=== PATIENT | male | born 1990 | race Caucasian/White ===

== ENCOUNTER 2017-06-26 19:15 | Emergency (ER) | payer OTHER ==
[~2017-06-26] VITALS: Ht 175.2 cm; Wt 93.4 kg
[~2017-06-26 19:15] MED LIST: AMOXICILLIN500 M2 PO; ANAPROX DS550 MG PO; CLINDAMYCIN HC300 MG PO; COMPLETE ALLERG25 M2 PO; CYCLOBENZAPRINE5 M3 PO; FLEXERIL10 MG PO; HYDROCODONE BIT1 T11 PO; KEFLEX500 MG PO; MOBIC15 MG PO; MOTRIN800 MG PO; Motrin,Rufen800 MG PO; NAPROSYN500 MG PO; NORCO 325 MG-51 TAB PO; Orphenadrine C100 MG PO; PENICILLIN VK500 MG PO; Peridex 473 ML473 ML PO; RISPERDAL1 M1 PO; ULTRAM50 MG PO; VISTARIL25 M2 PO; ZYPREXA10 M1 PO
== END 2017-06-26 20:05 | disposition home or self-care (01) ==
LOC: ED 19:15
DX: S80.212A Abrasion, left knee, initial encounter (principal); F17.200 Nicotine dependence, unspecified, uncomplicated; V19.9XXA Pedal cyclist (driver) (passenger) injured in unspecified traffic accident, initial encounter; Y93.55 Activity, bike riding; Y92.89 Other specified places as the place of occurrence of the external cause; Y99.8 Other external cause status

== ENCOUNTER 2018-02-23 17:07 | Emergency (ER) | payer OTHER ==
[~2018-02-23] VITALS: Ht 175.2 cm; Wt 93.4 kg
[2018-02-23] MEDS ORDERED: LAMOTRIGINE100 MG PO (17:18)
[2018-02-23] MEDS ORDERED: MINIPRESS2 M1 PO (17:18)
[2018-02-23] MEDS ORDERED: 'CLONIDINE0.1 MG PO (17:18)
[2018-02-23] MEDS ORDERED: NEURONTIN300 MG PO (17:18)
[2018-02-23] MEDS ORDERED: MELOXICAM7.5 MG PO (17:19)
[2018-02-23] MEDS ORDERED: PREDNISONE10 MG PO (17:27)
== END 2018-02-23 17:32 | disposition home or self-care (01) ==
LOC: ED 17:07
DX: L23.9 Allergic contact dermatitis, unspecified cause (principal); F17.200 Nicotine dependence, unspecified, uncomplicated; Z79.899 Other long term (current) drug therapy

== ENCOUNTER → 2018-04-26 | Outpatient (CLI) | payer OTHER ==
[~2018-04-26] MED LIST changes: +'CLONIDINE0.1 MG PO; +LAMOTRIGINE100 MG PO; +MELOXICAM7.5 MG PO; +MINIPRESS2 M1 PO; +NEURONTIN300 MG PO; +PREDNISONE10 MG PO
== END | disposition home or self-care (01) ==
LOC: ORTHO 01:59
DX: M25.511 Pain in right shoulder (principal)

== ENCOUNTER 2018-09-30 01:19 | Emergency (ER) | payer OTHER ==
[~2018-09-30] VITALS: Ht 175.2 cm; Wt 113.4 kg
[2018-09-30] MEDS ORDERED: CLINDAMYCIN150 MG PO (02:01)
== END 2018-09-30 01:47 | disposition home or self-care (01) ==
LOC: ED 01:19
DX: K04.7 Periapical abscess without sinus (principal); J45.909 Unspecified asthma, uncomplicated; Z79.899 Other long term (current) drug therapy; Z90.49 Acquired absence of other specified parts of digestive tract

== ENCOUNTER 2018-10-03 15:54 | Inpatient (IN) | payer OTHER ==
[~2018-10-03] VITALS: Ht 175.3 cm; Wt 104.5 kg
--- NOTE | ~2018-10-03 | CON ---
[place], [place] REPORT OF CONSULTATION NAME: BEN CHRISTENSEN UNIT #: [id number] ROOM: 416 DOCTOR: JOANN FRANCO DMD BIRTHDATE: [birth year] DOS: Consultation for a left-sided facial swelling. On exam, moderate left-sided facial swelling noted. Minimal left eye swelling. The patient denies any dysphagia or dyspnea. Intraoral exam reveals minimal intraoral opening due to swelling and pain, moderate fluctuant swelling in the buccal space, adjacent to tooth #14, which is extensively carious. Remainder of the dentition is in relatively poor condition. Discussed treatment options with the patient. Recommend extraction of tooth #14, incision and drainage and attempted closure of the sinus under general anesthesia. The patient agreed, surgery will be scheduled for tomorrow in the morning. JOANN FRANCO DMD CM:CONSTR:REPORT OF CONSULTATION 1314 10/06/[id number] interface
--- NOTE | ~2018-10-03 | O ---
[place], [place] OPERATIVE NOTE NAME: BEN CHRISTENSEN UNIT #: [id number] ROOM: 416 DOCTOR: JOANN FRANCO DMD BIRTHDATE: [birth year] DOS: PREOPERATIVE DIAGNOSES: Left-sided facial swelling and nonrestorable tooth #14. POSTOPERATIVE DIAGNOSES: Left-sided facial swelling and nonrestorable tooth #14. ANESTHESIA: General anesthesia with endotracheal intubation. FLUIDS: Minimal. ESTIMATED BLOOD LOSS: Minimal. COMPLICATIONS: None. CONDITION: To PACU, stable. DESCRIPTION OF PROCEDURE: The patient was brought to the OR and placed in supine position. IV and EKG lines were placed. Endotracheal intubation and general anesthesia was administered. The patient was prepped and draped for oral procedures. Risks and benefits were explained to the patient prior to surgery. Clinical exam and CT taken determined nonrestorable tooth #14 with abscess eroding into the sinus. PROCEDURES PERFORMED: 8 mL of 0.5% Sensorcaine with 1:200,000 epinephrine. Stab incision in the buccal space. Moderate drainage achieved. Complete extraction tooth #14. Gelfoam placed. Sutured with 4-0 Vicryl. Lavaged x 2. Throat pack removed. The patient left the OR in good condition and went to PACU. JOANN FRANCO DMD CM:OPRECORD:OPERATIVE NOTE 1311 20 JOANN FRANOC DMD 10/06/18 191 interface
[~2018-10-03 15:54] MED LIST changes: +CLINDAMYCIN150 MG PO
[2018-10-03 15:55] VITALS: BP 139/96
[2018-10-03 16:42] LABS: BASO # 0.1 10*3/uL (0.0-0.1); BASO % 0.5 % (0.0-1.0); EOS # 0.3 10*3/uL (0.0-0.4); EOS % 3.5 % (1.0-4.0); HEMATOCRIT 41.7 % (42.0-52.0); HEMOGLOBIN 14.1 g/dl (14.0-18.0); LYMPH % 21.5 % (27.0-41.0); MEAN CELL VOLUME 92.7 fl (80.0-94.0); MEAN CORPUSCULAR HGB 31.3 pg (27.0-31.0); MEAN CORPUSCULAR HGB CONC 33.8 g/dl (33.0-37.0); MEAN PLATELET VOLUME 9.6 fl (9.6-12.3); MONO % 10.1 % (3.0-9.0); NEUT # 6.1 10*3/uL (2.3-7.9); NEUT % 64.1 % (47.0-73.0); PLATELET COUNT AUTOMATED 311 10*3/uL (130-400); RED CELL DISTRI WIDTH 12.4 % (0-14.5); WHITE BLOOD COUNT 9.5 10*3/uL (4.8-10.8)
--- NOTE | 2018-10-03 16:47 | NUR ---
PT STATES PAIN IS ALOT BETTER AFTER MEDICATION.
[2018-10-03 17:03] LABS: ALBUMIN 3.7 gm/dl (3.1-4.5); BUN 14 mg/dl (7-24); CHLORIDE 106 mmol/L (98-107); CREATININE 0.98 mg/dL (0.70-1.30); POTASSIUM 3.7 mmol/L (3.5-5.1); SGOT/AST 18 IU/L (3-35); SGPT/ALT 33 U/L (12-78); SODIUM 142 mmol/L (136-145); TOTAL PROTEIN 7.7 gm/dL (6.4-8.2)
[2018-10-03 17:10] LABS: ALKALINE PHOSPHATASE 74 U/L (45-117)
--- NOTE | 2018-10-03 18:06 | NUR ---
CT HERE TO PICK PATIENT UP FOR HIS CT SCAN.
--- NOTE | 2018-10-03 19:58 | NUR ---
CALL PLACED TO [facility] TO SEE WHEN CT WILL BE READ. STATED THEY WOULD READ IT NEXT.
[2018-10-03 20:00] VITALS: BP 138/80
--- NOTE | 2018-10-03 21:09 | NUR ---
PT ASKED ABOUT GOING OUTSIDE TO SMOKE ADVISED HIM WE ARE SMOKE FREE AND THAT HE HAD AN IV SP HE COULDNT GO OUTSIDE. PT STATES HE IS ALLERGIC TO NICOTINE PATCHES. PT STATES UNDERSTANDING AT THIS TIME.
--- NOTE | 2018-10-03 21:10 | NUR ---
PT STATES PAIN MEDICATION HAS BEEN EFFECTIVE AT THIS TIME. REMAINS IN BED WITH NO FURTHER COMPLAINTS AT THIS TIME. CALL LIGHT WITHIN REACH.
[2018-10-03 21:20] VITALS: BP 132/82
[2018-10-03 21:50] VITALS: BP 140/84
--- NOTE | 2018-10-03 21:50 | NUR ---
A 28, admitted to 4E, under the services of ERICKA Hall DO with a diagnosis of ABSCESS OF MAXILLA, PAIN, DENTAL ABSCESS. Chief complaint is TOOTHACHE. Patient arrived via wheel chair from ER. Monitor applied. Initial assessment completed. Vital signs taken and recorded. ERICKA HALL DO notified of admission to the unit. Orders received. See assessment for past medical history, medications and allergies. Patient and/or family oriented to unit. visitation policy reviewed. Clothing/patient valuable form completed. NI BARNHART A
--- NOTE | 2018-10-03 22:30 | NUR ---
UNABLE TO UPDATE MED. REC AT THIS TIME, WILL PASS ONTO DAYSHIFT NURSE.
--- NOTE | 2018-10-03 23:04 | NUR ---
PRN NORCO GIVEN FOR FACIAL PAIN. PATIENT TOLERATED WELL, CALL LIGHT IS WITHIN REACH.
--- NOTE | 2018-10-03 23:35 | NUR ---
0000 IV ABX GIVEN VIA PIGGYBACK. CALL LIGHT IS WITHIN REACH.
[2018-10-04] VITALS (7 sets, daily range): BP systolic 141–162; BP diastolic 80–98
--- NOTE | 2018-10-04 00:30 | NUR ---
PRN NORCO EFFECTIVE, CALL LIGHT IS WITHIN REACH.
--- NOTE | 2018-10-04 04:43 | NUR ---
0400 IV ABX GIVEN VIA PIGGYBACK. CALL LIGHT IS WITHIN REACH.
--- NOTE | 2018-10-04 05:40 | NUR ---
PRN MORPHINE GIVEN AT THIS TIME FOR FACIAL PAIN. PATIENT TOLERATED WELL, CALL LIGHT IS WITHIN REACH.
[2018-10-04 06:28] LABS: BASO % 0.3 % (0.0-1.0); EOS # 0.3 10*3/uL (0.0-0.4); EOS % 2.5 % (1.0-4.0); HEMATOCRIT 39.8 % (42.0-52.0); HEMOGLOBIN 13.4 g/dl (14.0-18.0); LYMPH % 18.3 % (27.0-41.0); MEAN CORPUSCULAR HGB 31.3 pg (27.0-31.0); MEAN CORPUSCULAR HGB CONC 33.7 g/dl (33.0-37.0); MEAN PLATELET VOLUME 9.6 fl (9.6-12.3); MONO # 1.1 10*3/uL (0.1-1.0); MONO % 9.5 % (3.0-9.0); NEUT # 7.7 10*3/uL (2.3-7.9); NEUT % 69.1 % (47.0-73.0); PLATELET COUNT AUTOMATED 306 10*3/uL (130-400); RED BLOOD COUNT 4.28 10*6/uL (4.50-5.90); RED CELL DISTRI WIDTH 12.3 % (0-14.5); WHITE BLOOD COUNT 11.1 10*3/uL (4.8-10.8)
[2018-10-04 07:01] LABS: ALBUMIN 3.3 gm/dl (3.1-4.5); ALKALINE PHOSPHATASE 69 U/L (45-117); BUN 15 mg/dl (7-24); CHLORIDE 103 mmol/L (98-107); CHOLESTEROL 109 mg/dL (<200); CREATININE 0.92 mg/dL (0.70-1.30); FREE T4 0.92 ng/dl (0.76-1.46); HDL CHOLESTEROL 25 mg/dl (40-60); LDL CHOLESTEROL 61 mg/dL (9-159); PHOSPHOROUS 3.1 mg/dL (2.5-4.9); POTASSIUM 3.9 mmol/L (3.5-5.1); SGOT/AST 14 IU/L (3-35); SGPT/ALT 31 U/L (12-78); SODIUM 137 mmol/L (136-145); TOTAL PROTEIN 7.4 gm/dL (6.4-8.2); TRIGLYCERIDES 116 mg/dl (<150); VLDL CHOLESTEROL 23 mg/dL (6-40)
--- NOTE | 2018-10-04 07:07 | NUR ---
SPOKE WITH DR. FRANCO REGARDING CONSULT. NO NEW ORDERS, WILL BE IN TO SEE PATIENT.
[2018-10-04 07:53] LABS: VITAMIN D, 25-HYDROXY 24.3 ng/mL (30-100)
--- NOTE | 2018-10-04 08:34 | NUR ---
24 HR chart check completed.
--- NOTE | 2018-10-04 08:55 | NUR ---
DR FRANCO IN FOR CONSULT AND HAS SCHELDULED OR IN AM.
--- NOTE | 2018-10-04 09:00 | NUR ---
Small Battery Plate Assembler in to talk to patient. Patient states lives at home with and daughter. There are few steps in the home. Physician: zulay hirsch [facility]acy: [facility] Home health services: none Patient's level of ADLs: INDEPENDENT Patient has working utilities: all working DME: none Follow-up physician's appointment after d/c: will be made by hospitalist nurse director upon discharge Does patient want to access PORTAL?: no Discharge plan discussed with patient, patient lives at home with and daughter, he is independent in adls and ambualtion, patient states he will be going home when able and denies any home needs. KIRSTIE GABRIEL
--- NOTE | 2018-10-04 15:25 | NUR ---
CALLED DR. MCKEON AND ASKED IF PATIENT COULD REMOVE MONITOR TO SHOWER. DR. MCKEON ALLOWS.
--- NOTE | 2018-10-04 17:36 | NUR ---
PATIENT C/O JAW PAIN. MEDICATED WITH PRN NORCO. WILL CHECK EFFECTIVENESS.
--- NOTE | 2018-10-04 20:10 | NUR ---
PT MEDICATED WITH IV MORPHINE PER PRN ORDER FOR C/O PAIN IN L SIDE OF JAW 07/19. WILL MONITOR EFFECTIVENESS. PATIENT EDUCATED ABOUT MEDICATION AND ENCOURAGED TO USE CALL LIGHT WHEN GETTING OOB. FAMILY AT BEDSIDE. CALL LIGHT LEFT IN REACH.
--- NOTE | 2018-10-04 21:49 | NUR ---
PATIENT STATES EARLIER IV MORPHINE WAS EFFECTIVE AND IS NOW RATING PAIN 5/10. PATIENT REQUESTING ADDITIONAL PAIN MEDICATION AT THIS TIME STATING "IT'S STILL HURTING." PO NORCO ADMINISTERED PER PRN ORDER. PATIENT IS ALSO C/O SOME MILD NAUSEA BUT IS REFUSING NEED FOR PRN ZOFRAN. WILL MONITOR. CALL LIGHT IN REACH.
--- NOTE | 2018-10-04 23:57 | NUR ---
PATIENT MEDICATED WITH PO RESTORIL PER PRN ORDER FOR C/O INSOMNIA. WILL MONITOR EFFECTIVENESS. CALL LIGHT LEFT IN REACH.
[2018-10-05] VITALS (8 sets, daily range): BP systolic 119–164; BP diastolic 80–98
--- NOTE | 2018-10-05 00:01 | NUR ---
NOTIFIED OF BP 160/92 MANUALLY AFTER PAIN HAS BEEN MANAGED. REVIEWED HOME MEDICATIONS WITH PATIENT AND DISCUSSED THESE WITH . STATES HE WILL REVIEW MEDICATIONS AND PUT IN ORDERS NEEDED. ALSO DISCUSSED NPO STATUS FOR SURGERY ON MAXILLARY ABSCESS WITH .
--- NOTE | 2018-10-05 00:46 | NUR ---
IV HYDRALAZINE ADMINISTERED PER ONE TIME ORDER FOR HYPERTENSION. BP 160/92 MANUALLY. WILL MONITOR EFFECTIVENESS. CALL LIGHT LEFT IN REACH.
--- NOTE | 2018-10-05 01:30 | NUR ---
HOME MED REC HAS BEEN REVIEWED WITH PATIENT BY THIS RN. REQUESTING THAT AM SHIFT RN CALL [facility] TO VERIFY HOME MEDICATIONS.
--- NOTE | 2018-10-05 05:11 | NUR ---
PATIENT TAKEN OFF LANGUAGE TRANSLATOR AT THIS TIME SO THAT HE CAN SHOWER BEFORE SURGERY. STEADY GAIT OBSERVED. PATIENT DENIES ANY DIZZINESS/LIGHTHEADEDNESS. TAKEN TO SHOWER ROOM. TOWELS/HIBICLENS/NEW [place] PROVIDED. INSTRUCTED TO USE CALL LIGHT IN SHOWER IF NEED BE. ALSO INSTRUCTED TO USE ROOM CALL LIGHT TO NOTIFY RN WHEN HE IS FINISHED SO THAT HE CAN BE PLACED BACK ON THE MONITOR.
[2018-10-05 08:18] LABS: MEAN CELL VOLUME 94.1 fl (80.0-94.0); MEAN CORPUSCULAR HGB 30.9 pg (27.0-31.0); MEAN CORPUSCULAR HGB CONC 32.8 g/dl (33.0-37.0); MEAN PLATELET VOLUME 9.3 fl (9.6-12.3); PLATELET COUNT AUTOMATED 361 10*3/uL (130-400); RED BLOOD COUNT 4.89 10*6/uL (4.50-5.90); RED CELL DISTRI WIDTH 12.3 % (0-14.5)
[2018-10-05 08:23] LABS: HEMOGLOBIN 15.1 g/dl (14.0-18.0)
[2018-10-05 08:24] LABS: BUN 14 mg/dl (7-24); CHLORIDE 102 mmol/L (98-107); CREATININE 1.03 mg/dL (0.70-1.30); POTASSIUM 4.5 mmol/L (3.5-5.1); SODIUM 136 mmol/L (136-145)
[2018-10-05 08:33] LABS: TOTAL CELLS COUNTED 100 #CELLS
[2018-10-05 08:34] LABS: PLATELET SUFFICIENCY NORMAL (NORMAL)
--- NOTE | 2018-10-05 09:00 | NUR ---
case management attempted to visit with patient, patient in surgery at this time, will see at a later time
--- NOTE | 2018-10-05 11:27 | NUR ---
PT LEFT AMA
--- NOTE | 2018-10-06 11:00 | NUR ---
WAS TOLD BY PATIENT BRANCH BANKER THAT PT WAS LEAVING AMA. PT HAD ASKED ALL MORNING IF WAS BEING DISCHARGED, I HAD TOLD PT THAT THERE WAS NOT NO ORDER FOR DISCHARGE. PT REMOVED HIS IV SITE AND SIGNED AMA PAPERWORK.
== END 2018-10-05 11:27 | disposition left against medical advice (07) | DRG 159 ==
LOC: ED 15:54 → 4E 20:51 → EDHOLD 20:51 → 4E 20:51
PROVIDERS: Internal Medicine; Nurse Practitioner Family; Student in an Organized Health Care Education/Training Program; ADMIT Internal Medicine
PROC: 0CDWXZ0 Extraction of Upper Tooth, Single, External Approach (ICD-10-PCS; principal; 2018-10-05)
PROC: 0C9W0Z0 Drainage of Upper Tooth, Open Approach, Single (ICD-10-PCS; 2018-10-05)
DX: K04.7 Periapical abscess without sinus (principal); M27.2 Inflammatory conditions of jaws; K02.9 Dental caries, unspecified; I10 Essential (primary) hypertension; Z53.21 Procedure and treatment not carried out due to patient leaving prior to being seen by health care provider; J45.909 Unspecified asthma, uncomplicated; E66.09 Other obesity due to excess calories; R56.9 Unspecified convulsions; Z71.6 Tobacco abuse counseling; Z72.0 Tobacco use; Z68.34 Body mass index [BMI] 34.0-34.9, adult; Z90.49 Acquired absence of other specified parts of digestive tract; Z83.3 Family history of diabetes mellitus; Z82.0 Family history of epilepsy and other diseases of the nervous system; Z82.49 Family history of ischemic heart disease and other diseases of the circulatory system; Z79.899 Other long term (current) drug therapy

== ENCOUNTER 2018-10-20 04:18 | Emergency (ER) | payer OTHER ==
[~2018-10-20] VITALS: Ht 175.2 cm; Wt 117.9 kg
[2018-10-20 04:49] LABS: BASO # 0.1 10*3/uL (0.0-0.1); BASO % 0.5 % (0.0-1.0); EOS # 0.4 10*3/uL (0.0-0.4); EOS % 3.9 % (1.0-4.0); HEMATOCRIT 41.9 % (42.0-52.0); HEMOGLOBIN 14.2 g/dl (14.0-18.0); LYMPH # 3.6 10*3/uL (1.3-4.4); LYMPH % 35.5 % (27.0-41.0); MEAN CELL VOLUME 91.9 fl (80.0-94.0); MEAN CORPUSCULAR HGB 31.1 pg (27.0-31.0); MEAN CORPUSCULAR HGB CONC 33.9 g/dl (33.0-37.0); MEAN PLATELET VOLUME 9.6 fl (9.6-12.3); MONO % 9.9 % (3.0-9.0); NEUT # 5.1 10*3/uL (2.3-7.9); PLATELET COUNT AUTOMATED 352 10*3/uL (130-400); RED BLOOD COUNT 4.56 10*6/uL (4.50-5.90); RED CELL DISTRI WIDTH 12.5 % (0-14.5); WHITE BLOOD COUNT 10.2 10*3/uL (4.8-10.8)
[2018-10-20 05:00] LABS: BILIRUBIN NEGATIVE (NEGATIVE); BLOOD NEGATIVE (NEGATIVE); CLARITY CLEAR (CLEAR); COLOR YELLOW (YELLOW); GLUCOSE NEGATIVE (NEGATIVE); KETONE NEGATIVE (NEGATIVE); LEUKO ESTERASE NEGATIVE (NEGATIVE); NITRITE NEGATIVE (NEGATIVE); SPECIFIC GRAVITY >= 1.030 (1.005-1.030); UROBILINOGEN 0.2 E.U./dl (0.2-1.0)
[2018-10-20 05:04] LABS: ALBUMIN 3.8 gm/dl (3.1-4.5); ALKALINE PHOSPHATASE 79 U/L (45-117); BUN 19 mg/dl (7-24); CHLORIDE 108 mmol/L (98-107); CREATININE 1.01 mg/dL (0.70-1.30); POTASSIUM 3.7 mmol/L (3.5-5.1); SGOT/AST 14 IU/L (3-35); SGPT/ALT 31 U/L (12-78); SODIUM 141 mmol/L (136-145); TOTAL PROTEIN 7.2 gm/dL (6.4-8.2)
[2018-10-20 05:24] LABS: RBC 0-2 rbc/hpf (0-2); WBC 0-2 wbc/hpf (0-5)
[2018-10-20] MEDS ORDERED: ONDANSETRON HYDR4 M1 PO (06:10)
== END 2018-10-20 06:18 | disposition home or self-care (01) ==
LOC: ED 04:18
PROVIDERS: Emergency Medicine
DX: K52.9 Noninfective gastroenteritis and colitis, unspecified (principal); R06.02 Shortness of breath; R07.81 Pleurodynia; R05 Cough; I10 Essential (primary) hypertension; E66.9 Obesity, unspecified; F17.200 Nicotine dependence, unspecified, uncomplicated; Z79.899 Other long term (current) drug therapy

== ENCOUNTER 2019-10-23 17:05 | Emergency (ER) | payer OTHER ==
[~2019-10-23] VITALS: Ht 175.2 cm; Wt 102.1 kg
[~2019-10-23 17:05] MED LIST changes: +Bactroban Oint22 GM T; +CEPHALEXIN500 M1 PO; +IBU800 MG PO; +NICODERM CQ1 EAC2 TD; +ONDANSETRON HYDR4 M1 PO; +SEPTDS PO
[2019-10-23] MEDS ORDERED: NAPROSYN500 MG PO (17:45)
[2019-10-23] MEDS ORDERED: AMOXICILLIN500 M2 PO (17:45)
== END 2019-10-23 17:58 | disposition home or self-care (01) ==
LOC: ED 17:05
DX: K08.89 Other specified disorders of teeth and supporting structures (principal); F17.200 Nicotine dependence, unspecified, uncomplicated; Z79.899 Other long term (current) drug therapy

== ENCOUNTER 2021-05-13 16:21 | Emergency (ER) | payer OTHER ==
[~2021-05-13] VITALS: Wt 108.9 kg
[2021-05-13] MEDS ORDERED: MEDROL DOSEPAK4 MG PO (19:02)
== END 2021-05-13 19:12 | disposition home or self-care (01) ==
LOC: ED 16:21
DX: T63.441A Toxic effect of venom of bees, accidental (unintentional), initial encounter (principal); Z90.49 Acquired absence of other specified parts of digestive tract; Z79.899 Other long term (current) drug therapy; Y92.89 Other specified places as the place of occurrence of the external cause

== ENCOUNTER 2021-05-28 01:28 | Emergency (ER) | payer OTHER ==
[~2021-05-28] VITALS: Ht 175.2 cm; Wt 112.0 kg
[~2021-05-28 01:28] MED LIST changes: +MEDROL DOSEPAK4 MG PO
[2021-05-28] MEDS ORDERED: PENICILLIN VK500 MG PO (01:53)
== END 2021-05-28 01:57 | disposition home or self-care (01) ==
LOC: ED 01:28
DX: K04.7 Periapical abscess without sinus (principal); K02.9 Dental caries, unspecified; Z79.899 Other long term (current) drug therapy

== ENCOUNTER 2021-11-26 11:36 | Emergency (ER) | payer OTHER ==
[~2021-11-26] VITALS: Wt 99.8 kg
[2021-11-26] MEDS ORDERED: PENICILLIN VK500 MG PO (12:13)
[2021-11-26] MEDS ORDERED: IBUPROFEN600 MG PO (12:13)
== END 2021-11-26 12:17 | disposition home or self-care (01) ==
LOC: ED 11:36
DX: K02.9 Dental caries, unspecified (principal); Z79.899 Other long term (current) drug therapy; Z98.890 Other specified postprocedural states; Z90.49 Acquired absence of other specified parts of digestive tract; Z87.891 Personal history of nicotine dependence

== ENCOUNTER 2021-12-01 09:40 | Emergency (ER) | payer OTHER ==
[~2021-12-01] VITALS: Ht 175.2 cm; Wt 108.9 kg
[~2021-12-01 09:40] MED LIST changes: +IBUPROFEN600 MG PO
== END 2021-12-01 13:09 | disposition home or self-care (01) ==
LOC: ED 09:40
DX: J06.9 Acute upper respiratory infection, unspecified (principal); Z20.822 Contact with and (suspected) exposure to COVID-19; Z79.899 Other long term (current) drug therapy; Z90.49 Acquired absence of other specified parts of digestive tract; Z87.891 Personal history of nicotine dependence; Z98.890 Other specified postprocedural states

== ENCOUNTER → 2022-05-27 | Outpatient (CLI) | payer OTHER | END | disposition home or self-care (01) | LOC: RAD 09:53 | PROVIDERS: ATTEND Family Medicine | DX: S82.091 Other fracture of right patella (principal); X58.XXXD Exposure to other specified factors, subsequent encounter ==

== ENCOUNTER → 2022-06-30 | Outpatient (CLI) | payer OTHER | END | disposition home or self-care (01) | LOC: MRI 02:33 | PROVIDERS: ATTEND Family Medicine | DX: S83.91XA Sprain of unspecified site of right knee, initial encounter (principal); X58.XXXA Exposure to other specified factors, initial encounter; Y93.89 Activity, other specified; Y92.89 Other specified places as the place of occurrence of the external cause; Y99.8 Other external cause status ==

== ENCOUNTER → 2022-09-28 | Outpatient (CLI) | payer OTHER ==
[2022-09-28 15:22] LABS: BASO # 0.1 10*3/uL (0.0-0.1); BASO % 0.6 % (0.0-1.0); EOS # 0.4 10*3/uL (0.0-0.4); EOS % 4.8 % (1.0-4.0); HEMATOCRIT 45.8 % (42.0-52.0); LYMPH # 2.2 10*3/uL (1.3-4.4); LYMPH % 28.6 % (27.0-41.0); MEAN CELL VOLUME 91.2 fl (80.0-94.0); MEAN CORPUSCULAR HGB 31.3 pg (27.0-31.0); MEAN CORPUSCULAR HGB CONC 34.3 g/dl (33.0-37.0); MEAN PLATELET VOLUME 9.6 fl (9.6-12.3); MONO # 0.6 10*3/uL (0.1-1.0); NEUT # 4.5 10*3/uL (2.3-7.9); NEUT % 57.9 % (47.0-73.0); PLATELET COUNT AUTOMATED 316 10*3/uL (130-400); RED BLOOD COUNT 5.02 10*6/uL (4.50-5.90); RETICULOCYTE % 1.69 % (0.50-2.50); WHITE BLOOD COUNT 7.7 10*3/uL (4.8-10.8)
[2022-09-28 15:28] LABS: BILIRUBIN Negative (Negative); BLOOD Negative (Negative); CLARITY Clear (Clear); COLOR Yellow (Yellow); GLUCOSE Negative (Negative); KETONE Trace (Negative); LEUKO ESTERASE Negative (Negative); NITRITE Negative (Negative); PH 5.5 (4.5-8.0); UROBILINOGEN 0.2 E.U./dl (0.0-1.0)
[2022-09-28 15:40] LABS: ALKALINE PHOSPHATASE 87 U/L (46-116); BUN 9 mg/dl (9-23); CHLORIDE 101 mmol/L (98-107); CHOLESTEROL 133 mg/dL (<200); CREATININE 0.98 mg/dL (0.70-1.30); GAMMA GLUTAMYL TRANSPEPTIDASE 37 U/L (0-73); LDL CHOLESTEROL 64 mg/dL (9-159); POTASSIUM 3.7 mmol/L (3.4-5.1); SGPT/ALT 48 U/L (10-49); SODIUM 135 mmol/L (136-145); TOTAL PROTEIN 7.2 gm/dL (6.0-8.0); TRIGLYCERIDES 247 mg/dl (<150)
[2022-09-28 15:46] LABS: BACTERIA TRACE; EPITHELIAL CELLS 0-2; MUCOUS 2+; RBC 0-2 rbc/hpf (0-2)
[2022-09-28 15:47] LABS: HYALINE CAST 0-2
[2022-09-28 15:51] LABS: VITAMIN D, 25-HYDROXY 36.5 ng/mL (30-100)
== END | disposition home or self-care (01) ==
LOC: LAB 14:51
PROVIDERS: ATTEND Family Medicine
DX: R79.89 Other specified abnormal findings of blood chemistry (principal); R53.83 Other fatigue; E78.5 Hyperlipidemia, unspecified; E55.9 Vitamin D deficiency, unspecified; R74.8 Abnormal levels of other serum enzymes

== ENCOUNTER 2022-10-01 18:25 | Emergency (ER) | payer OTHER ==
[~2022-10-01] VITALS: Wt 124.3 kg
[2022-10-01] MEDS ORDERED: CEPACOL SORE T1 EACH MM (20:45)
[2022-10-01] MEDS ORDERED: AUGMENTIN XR 11 EACH PO (20:45)
[2022-10-01] MEDS ORDERED: FLONASE ALLERG9.9 ML NAS (20:45)
[2022-10-01] MEDS ORDERED: MUCINEX D ER 61 EACH PO (20:45)
== END 2022-10-01 20:54 | disposition home or self-care (01) ==
LOC: ED 18:25
DX: J06.9 Acute upper respiratory infection, unspecified (principal); Z20.822 Contact with and (suspected) exposure to COVID-19; Z79.899 Other long term (current) drug therapy; Z90.49 Acquired absence of other specified parts of digestive tract; Z98.890 Other specified postprocedural states; Z87.891 Personal history of nicotine dependence

== ENCOUNTER → 2023-04-27 | Outpatient (CLI) | payer OTHER ==
[~2023-04-27] MED LIST changes: +AUGMENTIN XR 11 EACH PO; +CEPACOL SORE T1 EACH MM; +FLONASE ALLERG9.9 ML NAS; +MUCINEX D ER 61 EACH PO
[2023-04-27 16:08] LABS: BILIRUBIN Negative (Negative); BLOOD Negative (Negative); CLARITY Clear (Clear); COLOR Dark Yellow (Yellow); GLUCOSE Negative (Negative); KETONE Trace (Negative); LEUKO ESTERASE Negative (Negative); NITRITE Negative (Negative); PH 5.5 (4.5-8.0); SPECIFIC GRAVITY >= 1.030 (1.001-1.030)
[2023-04-27 16:09] LABS: BASO # 0.1 10*3/uL (0.0-0.1); BASO % 0.5 % (0.0-1.0); EOS # 0.3 10*3/uL (0.0-0.4); EOS % 3.6 % (1.0-4.0); HEMATOCRIT 44.9 % (42.0-52.0); LYMPH # 2.5 10*3/uL (1.3-4.4); LYMPH % 26.9 % (27.0-41.0); MEAN CELL VOLUME 90.2 fl (80.0-94.0); MEAN CORPUSCULAR HGB 31.3 pg (27.0-31.0); MEAN CORPUSCULAR HGB CONC 34.7 g/dl (33.0-37.0); MEAN PLATELET VOLUME 9.7 fl (9.6-12.3); MONO # 0.5 10*3/uL (0.1-1.0); MONO % 5.7 % (3.0-9.0); NEUT # 5.9 10*3/uL (2.3-7.9); PLATELET COUNT AUTOMATED 356 10*3/uL (130-400); RED BLOOD COUNT 4.98 10*6/uL (4.50-5.90); RED CELL DISTRI WIDTH 12.9 % (0-14.5); RETICULOCYTE % 1.45 % (0.50-2.50); WHITE BLOOD COUNT 9.4 10*3/uL (4.8-10.8)
[2023-04-27 16:23] LABS: MUCOUS 1+; WBC 0-2 wbc/hpf (0-5)
[2023-04-27 16:42] LABS: ALKALINE PHOSPHATASE 91 U/L (46-116); BUN 13 mg/dl (9-23); CHLORIDE 105 mmol/L (98-107); CHOLESTEROL 149 mg/dL (<200); LDL CHOLESTEROL 93 mg/dL (9-159); POTASSIUM 3.4 mmol/L (3.4-5.1); SGPT/ALT 25 U/L (10-49); T3 UPTAKE 27.2 % (22.4-36.7); THYROXINE (T4) TOTAL 7.7 ug/dl (4.5-10.9); TOTAL PROTEIN 7.6 gm/dL (6.0-8.0); TRIGLYCERIDES 154 mg/dl (<150); VITAMIN D, 25-HYDROXY 46.5 ng/mL (30-100)
== END | disposition home or self-care (01) ==
LOC: LAB 15:41
PROVIDERS: ATTEND Family Medicine
DX: E78.5 Hyperlipidemia, unspecified (principal); E55.9 Vitamin D deficiency, unspecified; R79.89 Other specified abnormal findings of blood chemistry; R53.83 Other fatigue; R74.8 Abnormal levels of other serum enzymes

== ENCOUNTER 2024-01-27 18:25 | Emergency (ER) | payer OTHER ==
[~2024-01-27] VITALS: Ht 175.2 cm; Wt 112.9 kg
[~2024-01-27 18:25] MED LIST changes: +AMOX-CLAV 875-1 EACH PO; +TRAMADOL HCL50 MG PO; +WELLBUTRIN SR100 MG PO
[2024-01-27] MEDS ORDERED: Acetaminophen/Oxycodone 5 MG/325 MG TABLET PO ONE (18:40)
[2024-01-27] MEDS ORDERED: MELOXICAM15 MG PO (18:44)
== END 2024-01-27 19:06 | disposition home or self-care (01) ==
LOC: ED 18:25
DX: S83.92XA Sprain of unspecified site of left knee, initial encounter (principal); J45.909 Unspecified asthma, uncomplicated; Z90.49 Acquired absence of other specified parts of digestive tract; Z98.890 Other specified postprocedural states; F17.200 Nicotine dependence, unspecified, uncomplicated; W01.0XXA Fall on same level from slipping, tripping and stumbling without subsequent striking against object, initial encounter; Y93.89 Activity, other specified; Y92.89 Other specified places as the place of occurrence of the external cause; Y99.8 Other external cause status

== ENCOUNTER 2025-02-25 23:03 | Emergency (ER) | payer OTHER ==
[~2025-02-25] VITALS: Ht 172.7 cm; Wt 113.4 kg
[~2025-02-25 23:03] MED LIST changes: +MELOXICAM15 MG PO
[2025-02-25] MEDS ORDERED: Ondansetron Hydrochloride 4 MG TAB SL ONE (23:20)
[2025-02-25] MEDS ORDERED: PENICILLIN V POTASSIUM 500 MG TAB PO ONE (23:20)
[2025-02-25] MEDS ORDERED: Acetaminophen/Hydrocodone 5 MG/325 MG TABLET PO ONE (23:20)
== END 2025-02-25 23:19 | disposition home or self-care (01) ==
LOC: ED 23:03
DX: K02.9 Dental caries, unspecified (principal); Z90.49 Acquired absence of other specified parts of digestive tract; Z96.22 Myringotomy tube(s) status

== ENCOUNTER → 2025-08-06 | Outpatient (CLI) | payer OTHER ==
[2025-08-06 15:07] LABS: BASO # 0.1 10*3/uL (0.0-0.1); BASO % 0.6 % (0.0-1.0); EOS # 0.4 10*3/uL (0.0-0.4); EOS % 5.3 % (1.0-4.0); MEAN CELL VOLUME 92.6 fl (80.0-94.0); MEAN CORPUSCULAR HGB 31.3 pg (27.0-31.0); MEAN PLATELET VOLUME 9.7 fl (9.6-12.3); MONO # 0.8 10*3/uL (0.1-1.0); MONO % 10.1 % (3.0-9.0); NEUT # 3.9 10*3/uL (2.3-7.9); NEUT % 49.7 % (47.0-73.0); NUCLEATED RED BLOOD CELL 0.0 % (0.0-0.0); NUCLEATED RED BLOOD CELL 0.0 10*3/uL (0.0-0.0); PLATELET COUNT AUTOMATED 330 10*3/uL (130-400); RED CELL DISTRI WIDTH 12.9 % (0-14.5); RETICULOCYTE % 1.61 % (0.50-2.50)
[2025-08-06 15:16] LABS: BILIRUBIN Negative (Negative); BLOOD Negative (Negative); CLARITY Clear (Clear); COLOR Yellow (Yellow); KETONE Negative (Negative); LEUKO ESTERASE Negative (Negative); NITRITE Negative (Negative); PH 5.5 (4.5-8.0); SPECIFIC GRAVITY 1.020 (1.001-1.030); UROBILINOGEN 1.0 E.U./dl (0.0-1.0)
[2025-08-06 15:28] LABS: BACTERIA TRACE; MUCOUS 1+; RBC 0-2 rbc/hpf (0-2); WBC 0-2 wbc/hpf (0-5)
[2025-08-06 15:36] LABS: BUN 13 mg/dl (9-23); GAMMA GLUTAMYL TRANSFERASE 27 U/L (0-73); LDL CHOLESTEROL 74 mg/dL (9-159); SGPT/ALT 28 U/L (5-49); T3 UPTAKE 38.4 % (22.4-36.7); THYROXINE (T4) TOTAL 6.4 ug/dl (4.5-10.9)
[2025-08-06 15:37] LABS: VITAMIN D, 25-HYDROXY 40.6 ng/mL (30-100)
== END | disposition home or self-care (01) ==
LOC: LAB 14:35
PROVIDERS: ATTEND Family Medicine
DX: E55.9 Vitamin D deficiency, unspecified (principal); R79.89 Other specified abnormal findings of blood chemistry; R53.83 Other fatigue; E78.5 Hyperlipidemia, unspecified; M19.012 Primary osteoarthritis, left shoulder